=== PATIENT | female | born 1985 | race Caucasian/White ===

== ENCOUNTER 2017-06-24 13:40 | Emergency (ER) | payer OTHER ==
[~2017-06-24] VITALS: Ht 172.7 cm; Wt 73.5 kg
[~2017-06-24 13:40] MED LIST: PREN1TAB52 PO
[2017-06-24] MEDS ORDERED: CEPHALEXIN MONOHYDRATE 250 MG/5 ML SUSPENSION ORAL.SYG PO ONE (14:45)
[2017-06-24] MEDS ORDERED: SULFAMETHOX/TRIMETH DS 800-160 MG/TABLET PO ONE (14:45)
[2017-06-24 16:10] VITALS: BP 116/74
== END 2017-06-24 16:16 | disposition home or self-care (01) ==
LOC: EMS 13:44
DX: K04.7 Periapical abscess without sinus (principal); L29.9 Pruritus, unspecified
CPT/HCPCS: 99283

== ENCOUNTER 2019-09-21 23:14 | Emergency (ER) | payer OTHER | END 2019-09-21 23:30 | disposition left against medical advice (07) | LOC: EMS 23:15 | DX: N93.9 Abnormal uterine and vaginal bleeding, unspecified (principal); Z53.21 Procedure and treatment not carried out due to patient leaving prior to being seen by health care provider ==